=== PATIENT | female | born 1980 | race Caucasian/White ===

== ENCOUNTER 2019-03-25 16:41 | Emergency (ER) | payer OTHER, SELFPAY ==
[2019-03-25 16:46] VITALS: BP 156/95; PULSE 61; RESP 16; TEMP 36.9; O2SAT 95; BMI 20.7
--- NOTE | 2019-03-25 17:19 | ED_ITS ---
HPI - Extremity Injury (Upper) <ALFIE Quintana - Last Filed: 03/25/19 21:10> General Chief Complaint: Extremity Injury, Upper Stated Complaint: pain in right pinky knuckle/hand Time Seen by Provider: 03/25/19 16:43 Source: patient Mode of arrival: ambulatory Limitations: no limitations History of Present Illness HPI narrative: 38-year-old female presents emergency department today co mplaining of right 5th finger pain and and stiffness for the past few days but states it is worse today. She states the pain is a dull aching 8/10 as worse with movement and better with rest. 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 Her symptoms slowly resolved and she was referred to an orthopedic which she did not follow up with. Patient denies any trauma to the area, fevers, chills, redness, swelling, hand pain, elbow pain, chest pain, shortness of breath. Review of Systems <ALFIE Quintana - Last Filed: 03/25/19 21:10> Review of Systems Narrative: REVIEW OF SYSTEMS: GENERAL: Denies fever or chills. HENT: No head trauma. EYES: No double vision or vision loss. CARDIOVASCULAR: No chest pain or syncope. RESPIRATORY: No shortness of breath or cough. GASTROINTESTINAL: No nausea, vomiting, diarrhea, or constipation. GENITOURINARY: No flank pain or dysuria. MUSCULOSKELETAL: Complains of right 5th finger pain, see HPI. INTEGUMENTARY: No rash, lesions, or pruritus. NEURO: No numbness, tingling. PSYCH: No behavior or mood changes. PFSH <ALFIE Quintana - Last Filed: 03/25/19 21:10> Medical History Tendonitis (Acute) Social History Smoking Status: Current every day smoker Social History Smoking Status: Current every day smoker Exam <ALFIE Quintana - Last Filed: 03/25/19 21:10> Initial Vital Signs Initial Vital Signs: Vital Signs Temperature 98.5 F 03/25/19 16:46 Pulse Rate 61 03/25/19 16:46 Respiratory Rate 16 03/25/19 16:46 Blood Pressure 156/95 H 03/25/19 16:46 Pulse Oximetry 95 03/25/19 16:46 PHYSICAL EXAMINATION: GENERAL: Well groomed, alert, and cooperative. Answers questions promptly and appropriately. Vital signs noted. HENT: Normocephalic, atraumatic. EYES: Symmetrical, sclera white, no periorbital swelling. RESPIRATORY: Normal respiratory rate, trachea midline, airway patent. No stridor, nasal flaring or accessory muscle use. MUSCULOSKELETAL: Tenderness to palpation of right metacarpal phalangeal joint, a minor popping is heard when she flexes her 5th finger. There is very minimal swelling around this joint. No ecchymosis or erythema, no nodules palpated. Normal gait and coordination. Equal tone and mass bilaterally. No spinal tenderness or deformities. EXTREMITIES: CMS intact. No pedal edema. SKIN: Warm, dry, soft, appropriate color for ethnicity. No lesions, rashes, or wounds. NEURO: Alert and Oriented X 3. No sensory deficits. PSYCH: Appropriate affect and mood. <Hattie Evans DO - Last Filed: 03/26/19 07:14> Initial Vital Signs Initial Vital Signs: Vital Signs Temperature 98.5 F 03/25/19 16:46 Pulse Rate 61 03/25/19 16:46 Respiratory Rate 16 03/25/19 16:46 Blood Pressure 156/95 H 03/25/19 16:46 Pulse Oximetry 95 03/25/19 16:46 Course <ALFIE Quintana - Last Filed: 03/25/19 21:10> Course Course Narrative: Patient stated when she had this condition for him splinted for 2 weeks. An ulnar gutter splint was applied, patient was instructed that she should remove this often to move her hand perform gentle stretches, she should work mostly at night. Patient was given Toradol for pain for request. She was encouraged to follow up with an orthopedic that she has been referred to in [facility]. Orders Ordered: Discontinued Medications Ketorolac Tromethamine (Toradol) 30 mg IM NOW ONE Stop: 03/25/19 17:18 Last Admin: 03/25/19 17:42 Dose: 30 mg Documented by: KAY Vital Signs Vital signs: Vital Signs - 8 hr 03/25/19 16:46 03/25/19 18:02 Temperature 98.5 F Pulse Rate 61 61 Respiratory Rate 16 15 Blood Pressure 156/95 H Blood Pressure [Left Arm] 139/92 H Pulse Oximetry 95 100 <Hattie Evans DO - Last Filed: 03/26/19 07:14> Orders Ordered: Discontinued Medications Ketorolac Tromethamine (Toradol) 30 mg IM NOW ONE Stop: 03/25/19 17:18 Last Admin: 03/25/19 17:42 Dose: 30 mg Documented by: KAY Vital Signs Vital signs: Vital Signs - 8 hr 03/25/19 16:46 03/25/19 18:02 Temperature 98.5 F Pulse Rate 61 61 Respiratory Rate 16 15 Blood Pressure 156/95 H Blood Pressure [Left Arm] 139/92 H Pulse Oximetry 95 100 MDM - Extremity Injury (Upper) <ALFIE Quintana - Last Filed: 03/25/19 21:10> Medical Records Attestation: I reviewed the patient's medical records. Lab Data Attestation: I reviewed the patient's lab results. MDM Narrative Medical decision making narrative: Differential includes tendinitis (most likely due to description of repetitive use of hand, lack of trauma, lack of swelling or bruising, tenderness on exam, history of tenderness in the past), fracture (less likely due to lack of trauma, no point tenderness), infection (less likely due to lack of erythema or systemic symptoms such as fever). Patient was encouraged to follow up with Ortho as she was referred to an orthopedic in the past. Strict return precautions given and follow-up instructions discussed. Discharge Plan Departure Patient Disposition: Home Clinical Impression: Tendonitis Discharge Date/Time: 03/25/19 18:26 Instructions: DI for Tendinitis Activity Restrictions/Additional Instructions: Thank you for entrusting me with your care today. As discussed, appears that her symptoms may be due to inflammation around your tendons from overuse. You may use ibuprofen 600 mg every 6 hours for pain for the next few days. For placed a splint on her hand please leave this in place over the weekend, you may remove it occasionally for gentle stretches as well as bathing. Please follow-up with the orthopedic that you were referred to earlier. Return to the emergency department if you develop chest pain, shortness of breath, high fevers, seizures, or syncope. Stand Alone Forms: Work Release Note
[2019-03-25] MEDS: KETOROLAC 60 MG/2 ML VIAL 30 MG IM (17:42)
[2019-03-25 18:02] VITALS: BP 139/92; PULSE 61; RESP 15; O2SAT 100
== END 2019-03-25 18:26 | disposition home or self-care (01) ==
PROVIDERS: Emergency Provider Nurse Practitioner
DX: M77.9 Enthesopathy, unspecified (principal)
CPT/HCPCS: 29125; 96372; 99283; J1885